=== PATIENT | female | born 1975 | race Caucasian/White ===

== ENCOUNTER 2017-01-03 14:54 | Inpatient (IN) | payer BC ==
[~2017-01-03] VITALS: Ht 162.6 cm; Wt 76.7 kg
--- NOTE | ~2017-01-03 | OR ---
PATIENT'S NAME: [facility] AGE: 41 Y [address] 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 She is 2 cm, and she had irregular contractions. Pitocin was eventually started and reached a maximum of 5 milliunits per minute. heart tones remained reassuring. After the Pitocin was started, her contractions got more regular, and she became uncomfortable. At 6 cm dilation, an intrathecal anesthetic was placed. The Saavedra catheter was placed, and a forebag was ruptured with clear fluid. Her group B strep testing was negative. She progressed quickly on to complete with two contractions, pushed and delivered spontaneously. She delivered the vertex in the TOM position. Shoulders and body were easily delivered. Baby girl lets out a spontaneous cry. Her cord was doubly clamped and cut. She received score of 8 and 9, and her weight has not yet been taken. A three-vessel cord was noted. Placenta delivered spontaneously and intact. Cervix and vagina are intact. A small first-degree laceration was repaired in the usual fashion with 3-0 chromic. The patient tolerated the procedure well. Mom and baby girl are doing well in recovery. LIZBET REBOLLEDO MD KHP/modl /[id number] d: 01/04/170 t: 01/12/17 1750, OPERATIVE SUMMARY
[~2017-01-03 14:54] MED LIST: PRENATAL 1+1)(P1 TAB PO
[2017-01-03] MEDS ORDERED: Z-PAK250 MG PO (15:50)
[2017-01-03 17:07] LABS: BASOPHIL % 0.2 %; EOSINOPHIL # 0.1 K/uL (0.0-0.5); EOSINOPHIL % 0.6 %; HEMATOCRIT 43.3 % (33.0-46.0); HEMOGLOBIN 14.6 g/dL (11.0-15.0); IMMATURE GRANULOCYTE # 0.1 K/uL (0.0-0.3); IMMATURE GRANULOCYTE % 0.5 %; LYMPHOCYTE # 2.6 K/uL (0.8-4.0); LYMPHOCYTE % 16.2 %; MCH 30.3 pg (27.0-34.0); MCHC 33.7 gm/dL (32.0-36.5); MCV 89.8 fl (83.0-98.0); MONOCYTE % 6.1 %; MPV 11.7 fl (9.4-12.4); NEUTROPHIL # (ANC) 12.4 K/uL (1.8-7.8); NEUTROPHIL % 76.4 %; NRBC % 0 /100WBC (0-0.00); PLATELET COUNT 258 K/uL (150-450); RBC 4.82 M/uL (3.50-5.50); RDW-CV 13.9 % (11.9-14.6)
[2017-01-03 17:08] LABS: WBC 16.2 K/uL (4.0-11.0)
[2017-01-04 05:00] LABS: BASOPHIL % 0.2 %; EOSINOPHIL # 0.1 K/uL (0.0-0.5); EOSINOPHIL % 0.9 %; HEMATOCRIT 35.3 % (33.0-46.0); HEMOGLOBIN 11.8 g/dL (11.0-15.0); IMMATURE GRANULOCYTE # 0.1 K/uL (0.0-0.3); IMMATURE GRANULOCYTE % 0.5 %; LYMPHOCYTE # 2.4 K/uL (0.8-4.0); LYMPHOCYTE % 18.7 %; MCH 29.9 pg (27.0-34.0); MCHC 33.4 gm/dL (32.0-36.5); MCV 89.6 fl (83.0-98.0); MONOCYTE # 0.9 K/uL (0.0-1.0); MONOCYTE % 7.3 %; MPV 11.3 fl (9.4-12.4); NEUTROPHIL # (ANC) 9.2 K/uL (1.8-7.8); NEUTROPHIL % 72.4 %; NRBC % 0 /100WBC (0-0.00); RBC 3.94 M/uL (3.50-5.50); RDW-CV 13.9 % (11.9-14.6); WBC 12.8 K/uL (4.0-11.0)
[2017-01-04 05:13] LABS: PLATELET COUNT 185 K/uL (150-450)
--- NOTE | 2017-01-05 04:56 | NUR ---
VSS, independent with cares, last had motrin at 89, home today
[2017-01-05] MEDS ORDERED: PERCOCET 5-3251 EACH PO (08:36)
[2017-01-05] MEDS ORDERED: MOTRIN800 MG PO (08:36)
== END 2017-01-05 13:00 | disposition disaster alternative care site (69) | DRG 775 ==
LOC: GOBM 14:54 → GOBS 14:55 → GOBM 01-20 11:13
PROVIDERS: ADMIT Obstetrics & Gynecology
PROC: 3E033VJ Introduction of Other Hormone into Peripheral Vein, Percutaneous Approach (ICD-10-PCS; principal; 2017-01-03)
PROC: 10E0XZZ Delivery of Products of Conception, External Approach (ICD-10-PCS; principal; 2017-01-03)
PROC: 0HQ9XZZ Repair Perineum Skin, External Approach (ICD-10-PCS; principal; 2017-01-03)
DX: O70.0 First degree perineal laceration during delivery (principal); Z37.0 Single live birth; Z3A.37 37 weeks gestation of pregnancy
CPT/HCPCS: J2590; J3010; J7120